=== PATIENT | male | born 1965 | race Caucasian/White ===

== ENCOUNTER 2018-08-17 20:25 | Emergency (ER) | payer OTHER ==
[~2018-08-17] VITALS: Ht 170.2 cm; Wt 80.7 kg
--- OUTSIDE RECORDS SUMMARY | 2018-08-17 20:29 | XMS REPORT | Continuity of Care Document ---
Author Organization Unknown Address Unknown Allergies There is no data. Medications There is no data. Problems There is no data. Procedures There is no data. Results There is no data. Encounters ACCT No. Visit Date/Time Discharge Status Pt. Type Provider Facility Loc./Unit Complaint [id number] 11/06/2013 09:45:36 11/06/2013 23:59:59 [facility] Outpatient Xuan Faulkner
[2018-08-17] MEDS ORDERED: KETOROLAC 30 MG/ML VIAL IVP STA (20:35)
--- NOTE | 2018-08-17 20:47 | ED Abdominal Pain ---
General Chief Complaint: Abdominal/GI Problems Stated Complaint: ABD PAIN Nursing Triage Note: Patient states that he began having pain this afternoon that has progressively gotten worse. Patient describes the pain as abdominal with radiation to his lower back and testicles. Patient also states that he hasn't urinated all day. Patient rates his pain at a 10. Sepsis Screen: No Definite Risk Source of Information: Patient History of Present Illness Date Seen by Provider: August 17, 2018 Time Seen by Provider: 20:30 Initial Comments Patient reports that this afternoon he had some pain in his right lower abdomen. It is radiating into his groin his testicles and also in his right lower back. Reports it is gotten worse throughout the day. The he urinated earlier today but not this evening. Reports that he is not 10 out of 10. He does not report any swelling in his groin or testicles. He denies any dysuria or hematuria. He does not have any nausea, vomiting, fevers or chills. Allergies and Home Medications Allergies Coded Allergies: meperidine (Verified Allergy, Unknown, 08/17/18) Home Medications Ciprofloxacin HCl 500 Mg Tablet, 500 MG PO BID Prescribed by: JORGE CENTENO on 08/17/18 1786 Patient Home Medication List Home Medication List Reviewed: Yes Review of Systems Review of Systems Constitutional: No chills, No diaphoresis EENTM: No Symptoms Reported Cardiovascular: No Symptoms Reported Gastrointestinal: Abdominal Pain Genitourinary: See HPI Musculoskeletal: back pain (Right low back) Skin: no symptoms reported Psychiatric/Neurological: No Symptoms Reported Past Ervmrgu-Bfeath-Bzdvdj Hx Past Med/Social Hx: Reviewed Nursing Past Med/Soc Hx Patient Social History Alcohol Use: Denies Use Recreational Drug Use: No Smoking Status: Never a Smoker 2nd Hand Smoke Exposure: Yes Recent Foreign Travel: No Contact w/Someone Who Travel: No Recent Infectious Disease Expo: No Recent Hopitalizations: No Physical Abuse: No Sexual Abuse: No Mistreated: No Fear: No Seasonal Allergies Seasonal Allergies: No Past Medical History Surgeries: Yes (Knee Scope) Appendectomy Respiratory: No Cardiac: No Neurological: Yes Neuropathy Genitourinary: No Gastrointestinal: No Musculoskeletal: Yes Arthritis Endocrine: No HEENT: No Cancer: No Psychosocial: Yes Depression Integumentary: No Blood Disorders: No Physical Exam Vital Signs Vital Signs - First Documented 08/17/18 20:30 Temp 96.7 Pulse 61 Resp 20 B/P (MAP) 110/77 (88) Pulse Ox 99 O2 Delivery Room Air Capillary Refill : Less Than 3 Seconds Height/Weight/BMI Height: 5'7.00" Weight: 178lbs. 0oz. 80.743572ns; BMI Method:Stated General Appearance: WD/WN, mild distress HEENT: normal ENT inspection Neck: full range of motion Respiratory: chest non-tender, lungs clear, normal breath sounds Cardiovascular: normal peripheral pulses, regular rate, rhythm Peripheral Pulses: 2+ Radial Pulses (R), 2+ Radial Pulses (L) Gastrointestinal: soft; No distended, No guarding; tenderness (mild rlq) Extremities: normal range of motion Back: No vertebral tenderness; other (mild right low back ) Neurologic/Psychiatric: no motor/sensory deficits, alert, normal mood/affect, oriented x 3 Skin: normal color, warm/dry Focused Exam Lactate Level 08/17/18 20:48: Lactic Acid Level 1.89 Lactic Acid Level Laboratory Tests Test 08/17/18 20:48 Lactic Acid Level 1.89 MMOL/L (0.50-2.00) Progress/Results/Core Measures Results/Orders Lab Results Laboratory Tests Test 08/17/18 20:40 08/17/18 20:42 08/17/18 20:48 Range/Units Urine Color DARK YELLOW Urine Clarity SLIGHTLY CLOUDY Urine pH 7.0 5-9 Urine Specific [place] 1.020 1.016-1.022 Urine Protein 1+ H NEGATIVE Urine Glucose (UA) NEGATIVE NEGATIVE Urine Ketones TRACE H NEGATIVE Urine Nitrite NEGATIVE NEGATIVE Urine Bilirubin NEGATIVE NEGATIVE Urine Urobilinogen 0.2 NORMAL MG/DL Urine Leukocyte Esterase NEGATIVE NEGATIVE Urine RBC (Auto) 3+ H NEGATIVE Urine RBC >100 H /HPF Urine WBC NONE /HPF Urine Squamous Epithelial Cells RARE /HPF Urine Crystals NONE /LPF Urine Bacteria NEGATIVE /HPF Urine Casts PRESENT /LPF Urine Hyaline Casts 10-25 H /LPF Urine Mucus LARGE H /LPF Urine Culture Indicated NO White Blood Count 8.7 4.3-11.0 10^3/uL Red Blood Count 4.97 4.35-5.85 10^6/uL Hemoglobin 15.0 13.3-17.7 G/DL Hematocrit 45 40-54 % Mean Corpuscular Volume 90 80-99 FL Mean Corpuscular Hemoglobin 30 25-34 PG Mean Corpuscular Hemoglobin Concent 34 32-36 G/DL Red Cell Distribution Width 12.9 10.0-14.5 % Platelet Count 271 130-400 10^3/uL Mean Platelet Volume 9.5 7.4-10.4 FL Neutrophils (%) (Auto) 68 42-75 % Lymphocytes (%) (Auto) 21 12-44 % Monocytes (%) (Auto) 9 0-12 % Eosinophils (%) (Auto) 1 0-10 % Basophils (%) (Auto) 1 0-10 % Neutrophils # (Auto) 5.9 1.8-7.8 X 10^3 Lymphocytes # (Auto) 1.9 1.0-4.0 X 10^3 Monocytes # (Auto) 0.7 0.0-1.0 X 10^3 Eosinophils # (Auto) 0.1 0.0-0.3 10^3/uL Basophils # (Auto) 0.1 0.0-0.1 10^3/uL Sodium Level 144 135-145 MMOL/L Potassium Level 4.8 3.6-5.0 MMOL/L Chloride Level 102 98-107 MMOL/L Carbon Dioxide Level 30 21-32 MMOL/L Anion Gap 12 5-14 MMOL/L Blood Urea Nitrogen 20 H 7-18 MG/DL Creatinine 1.28 0.60-1.30 MG/DL Estimat Glomerular Filtration Rate 59 BUN/Creatinine Ratio 16 Glucose Level 176 H 70-105 MG/DL Calcium Level 10.0 8.5-10.1 MG/DL Lactic Acid Level 1.89 0.50-2.00 MMOL/L My Orders Orders - CENTENO,JORGE L DO Cbc With Automated Diff (08/17/18 20:35) Hs C Reactive Protein (08/17/18 20:35) Lactic Acid Analyzer (08/17/18 20:35) Ua Culture If Indicated (08/17/18 20:35) Acute Abd Series (08/17/18 20:35) Ketorolac Injection (Toradol Injection) (08/17/18 20:35) Ed Iv/Invasive Line Start (08/17/18 20:35) Basic Metabolic Panel (08/17/18 21:18) Ct Abdomen/Pelvis Wo (08/17/18 21:20) Ceftriaxone For Iv Use (Rocephin For I (08/17/18 23:15) Medications Given in ED Current Medications Medications Dose Ordered Sig/Maryuri Route Start Time Stop Time Status Last Admin Dose Admin Ceftriaxone Sodium 1000 mg/ Sterile Water 10 ml @ 200 mls/hr ONCE ONCE IV 08/17/18 23:15 08/17/18 23:17 DC 08/17/18 23:41 200 MLS/HR Vital Signs/I&O 08/17/18 08/17/18 20:30 23:50 Temp 96.7 98.5 Pulse 61 85 Resp 20 18 B/P (MAP) 110/77 (88) 148/91 (110) Pulse Ox 99 97 O2 Delivery Room Air Room Air Blood Pressure Mean: 88 Departure Impression Primary Impression: Kidney stone on right side Additional Impression: UTI (urinary tract infection) Qualified Codes: N39.0 - Urinary tract infection, site not specified; R31.9 - Hematuria, unspecified Disposition: HOME, SELF-CARE Condition: Stable Departure-Patient Inst. Referrals: RICH HOOD MD (PCP) Primary Care Physician Patient Instructions: Renal Colic, How to Strain Your Urine, Kidney Stones (DC), Urinary Tract Infections in Adults Add. Discharge Instructions: Tylenol as needed for pain. Follow-up with her primary care physician next week for recheck of symptoms All discharge instructions reviewed with patient and/or family. Voiced understanding. Scripts Ciprofloxacin HCl (Ciprofloxacin HCl) 500 Mg Tablet 500 MG PO BID, #14 TAB Prov: JORGE CENTENO DO 08/17/18 JORGE CENTENO DO August 17, 2018 20:47
--- NOTE | 2018-08-17 20:59 | Diagnostic Imaging Report ---
INDICATION: Right lower quadrant pain. FINDINGS: The heart size is normal. Lungs are clear. There is no pleural effusion or pneumothorax. The mediastinum is unremarkable. Bowel gas pattern is nonspecific. There is no free air. There are no abnormal abdominal calcifications. IMPRESSION: No acute cardiopulmonary abnormality Nonspecific bowel gas pattern Dictated by: Dictated on workstation # [id number]
[2018-08-17 21:09] LABS: HEMATOCRIT 45 % (40-54); MEAN CORPUSCULAR HEMOGLOBIN 30 PG (25-34); MEAN CORPUSCULAR HGB CONC 34 G/DL (32-36); MEAN CORPUSCULAR VOLUME 90 FL (80-99); PLATELET COUNT 271 10^3/uL (130-400); RED CELL DISTRIBUTION WIDTH 12.9 % (10.0-14.5); WHITE BLOOD COUNT 8.7 10^3/uL (4.3-11.0)
[2018-08-17 21:10] LABS: BASOPHILS # (AUTO) 0.1 10^3/uL (0.0-0.1); BASOPHILS % (AUTO) 1 % (0-10); EOSINOPHILS # (AUTO) 0.1 10^3/uL (0.0-0.3); EOSINOPHILS % (AUTO) 1 % (0-10); LYMPHOCYTES # (AUTO) 1.9 X 10^3 (1.0-4.0); LYMPHOCYTES % (AUTO) 21 % (12-44); MEAN PLATELET VOLUME 9.5 FL (7.4-10.4); MONOCYTES # (AUTO) 0.7 X 10^3 (0.0-1.0); MONOCYTES % (AUTO) 9 % (0-12); NEUTROPHILS # (AUTO) 5.9 X 10^3 (1.8-7.8); NEUTROPHILS % (AUTO) 68 % (42-75)
[2018-08-17 21:11] LABS: BILIRUBIN,URINE NEGATIVE (NEGATIVE); CLARITY,URINE SLIGHTLY CLOUDY; COLOR,URINE DARK YELLOW; GLUCOSE, URINE (UA) NEGATIVE (NEGATIVE); KETONES,URINE TRACE (NEGATIVE); LEUKOCYTE ESTERASE ,URINE NEGATIVE (NEGATIVE); NITRITE,URINE NEGATIVE (NEGATIVE); PROTEIN,URINE 1+ (NEGATIVE); RBC,URINE >100 /HPF; UROBILINOGEN,URINE 0.2 MG/DL (NORMAL)
[2018-08-17 21:12] LABS: BACTERIA,URINE NEGATIVE /HPF; SQUAMOUS EPITHELIAL CELL,UR RARE /HPF
[2018-08-17 21:51] LABS: POTASSIUM 4.8 MMOL/L (3.6-5.0)
[2018-08-17 21:52] LABS: CREATININE SERUM 1.28 MG/DL (0.60-1.30)
[2018-08-17] MEDS ORDERED: cefTRIAXone FOR IV USE 1,000 MG in WATER (STERILE) FOR INJECTION 10 ML IV ONE (23:15)
[2018-08-17] MEDS ORDERED: CIPR500T4 PO (23:29)
[2018-08-17 23:50] VITALS: BP 148/91
--- NOTE | 2018-08-18 06:19 | Diagnostic Imaging Report ---
PROCEDURE: CT abdomen and pelvis without contrast. TECHNIQUE: Multiple contiguous axial images were obtained through the abdomen and pelvis without the use of intravenous contrast. Auto Exposure Controls were utilized during the CT exam to meet ALARA standards for radiation dose reduction. INDICATION: Hematuria and flank pain. COMPARISON: Imaging from the same day. FINDINGS: The visualized lung bases are clear. The unenhanced liver, spleen, adrenal glands, and pancreas are unremarkable. A 1 mm calcification is identified within the distal right ureter. This is resulting in mild right hydroureteronephrosis and minimal right perinephric fat stranding. The left kidney and ureter is unremarkable. Mild vascular calcifications without aneurysmal dilatation of the abdominal aorta. No evidence of acute appendicitis. Hyperdense fluid within the urinary bladder. Mild fat stranding about the urinary bladder. Tiny fat-containing bilateral inguinal hernias. No bowel obstruction or pneumatosis. No significant adenopathy, free air, or free fluid within the abdomen or pelvis. No acute osseous abnormality. Well-corticated lucency within the right intertrochanteric region is present without associated bone destruction or extraosseous soft tissue mass lesion. IMPRESSION: 1. 1 mm calcification within the distal right ureter resulting in mild right hydroureteronephrosis. Inflammatory stranding about the right kidney and right ureter may relate to superimposed infection or inflammation. 2. High-density fluid within the urinary bladder, which may relate to blood products. 3. Stranding within the lower pelvis about the urinary bladder. This raises the question of possible underlying cystitis. 4. Additional findings as described above. Agree with preliminary interpretation. Dictated by: Dictated on workstation # [id number]
== END 2018-08-17 23:50 | disposition home or self-care (01) ==
LOC: ER FS 20:26
DX: N13.6 Pyonephrosis (principal); F32.9 Major depressive disorder, single episode, unspecified; Z88.5 Allergy status to narcotic agent; Z90.49 Acquired absence of other specified parts of digestive tract
CPT/HCPCS: 36415; 74022; 74176; 80048; 81000; 83605; 85025; 85027; 86141